=== PATIENT | male | born 1990 | race African-American/Black ===

== ENCOUNTER 2021-04-07 21:09 | Emergency (ER) | payer SELFPAY ==
[2021-04-07] MEDS ORDERED: Acetaminophen 500 MG TAB ONE (21:51)
[2021-04-07 21:55] LABS: Bacteria/HPF None Seen HPF (None Seen); Bilirubin Negative (Negative); Blood, Urine 3+ (Negative); Clarity Clear (Clear); Glucose, Urine (Dipstick) Normal (Negative); Ketone, Urine Negative (Negative); Leukocyte Negative Leu/uL (Negative); Nitrite Negative (Negative); Protein, Urine (Dipstick) Negative (Neg-Trace); Specific Gravity, Urine 1.024 (1.002-1.036); Squamous Epithelial None Seen HPF (0-3); Urobilinogen Normal mg/dL (Less than 2); WBC/HPF 0-3 HPF (0-3)
[2021-04-07 21:59] LABS: Hemoglobin 14.7 g/dL (14.0-18.0); Mean Corpuscular HGB CONC 31.2 g/dL (32.0-36.0); Mean Corpuscular Hemoglobin 26.7 pg (27.0-31.0); Mean Corpuscular Volume 85.6 fL (78.0-98.0); Mean Platelet Volume 7.2 fL (7.4-10.4); Platelet Count 366 thou/uL (130-400); RBC Distribution Width 12.2 % (11.5-14.5); Red Blood Cell (RBC) Count 5.51 mill/uL (4.70-6.10)
[2021-04-07 22:29] LABS: ALT (SGPT) 35 U/L (8-55); AST (SGOT) 18 U/L (5-34); Albumin 4.5 g/dL (3.5-5.0); Alkaline Phosphatase 74 U/L (40-110); Anion Gap 13 mmol/L (10-20); Bilirubin, Total 0.3 mg/dL (0.2-1.2); Calc. Creatinine Clearance 0 mL/min (70-130); Calcium 9.7 mg/dL (7.8-10.44); Carbon Dioxide 26 mmol/L (22-29); Chloride 101 mmol/L (98-107); Globulin 3.6 g/dL (2.4-3.5); Glucose 95 mg/dL (70-105); Protein, Total 8.1 g/dL (6.0-8.3); Sodium 136 mmol/L (136-145)
[2021-04-07 22:32] LABS: Band 3 % (5-11); Eosinophils 1 % (0-10); Lymphocytes 6 % (21-51); MDiff Complete? YES; Monocytes 13 % (0-10); Neutrophil 77 % (42-75)
[2021-04-07] MEDS ORDERED: methylPREDNISolone Sod Succ/PF 125 MG/2 ML VIAL ONE (22:34)
[2021-04-07 22:37] LABS: SARS-CoV-2 NAA Rapid Test Not Detected (NotDetected)
[2021-04-08 00:07] LABS: BUN (Urea Nitrogen) 8 mg/dL (8.9-20.6)
== END 2021-04-07 23:23 | disposition home or self-care (01) ==
LOC: ERS 21:09
DX: J45.901 Unspecified asthma with (acute) exacerbation (principal); J10.1 Influenza due to other identified influenza virus with other respiratory manifestations; Z20.822 Contact with and (suspected) exposure to COVID-19
CPT/HCPCS: 0240U; 71045; 80053; 81003; 81015; 84484; 85025; 85379; 93005; 94640; 96374; J2930; J7620

== ENCOUNTER 2021-10-23 15:41 | Inpatient (IN) | payer SELFPAY ==
[~2021-10-23 15:41] MED LIST: ISOVUE-370 76%-LOCM 1 ML ONE
[2021-10-23] MEDS ORDERED: Magnesium 2 GM/50 ML BAG (IN WATER) ONE (16:00)
[2021-10-23] MEDS ORDERED: Dexamethasone 10 MG/ML VIAL ONE (16:02)
[2021-10-23] MEDS ORDERED: Albuterol Sulfate 2.5 mg/3 ml Neb ONE (16:12)
[2021-10-23] MEDS ORDERED: Albuterol Sulfate 2.5 mg/0.5 ml Neb ONE (16:12)
[2021-10-23 16:15] LABS: Mean Corpuscular HGB CONC 31.6 g/dL (32.0-36.0); Mean Corpuscular Hemoglobin 27.3 pg (27.0-31.0); Mean Corpuscular Volume 86.3 fL (78.0-98.0); Mean Platelet Volume 7.6 fL (7.4-10.4); Platelet Count 303 thou/uL (130-400); RBC Distribution Width 12.5 % (11.5-14.5); Red Blood Cell (RBC) Count 5.49 mill/uL (4.70-6.10); White Blood Cell (WBC) Count 20.3 thou/uL (4.8-10.8)
[2021-10-23 16:23] LABS: Actual Bicarbonate (HCO3a) 25.5 mEq/L (22-28); Analyzer IN Cardio ER; Base Excess (BEa) -0.1 mEq/L (-2.0 to +3.0); CO2 Tension 45.1 mmHg (35.0-45.0); Calcium, Ionized (arterial) 1.14 mmol/L (1.12-1.30); Carboxyhemoglobin (COHb) 1.3 gm% (0.0-3.0); Hemoglobin (Hb) 14.7 g/dL (14.0-18.0); Potassium - ABG Lab 3.69 mmol/L (3.70-5.30); pH, Arterial 7.37 (7.35-7.45)
[2021-10-23 16:30] LABS: Band 3 % (5-11); Lymphocytes 12 % (21-51); MDiff Complete? YES; Monocytes 5 % (0-10); Neutrophil 72 % (42-75); Platelet Morphology Comment Appears Adequate; Polychromasia SLIGHT = 2-3 cells (100X) (0-2/hpf); Reactive Lymphocytes 7 % (0-10); Stomatocytes SLIGHT = 2-5 cells (100X) (0-1/hpf)
[2021-10-23 16:33] LABS: ALV-art Gradient 620.425 mmHg (0-20); O2 Tension (PaO2), arterial 36.2 mmHg (80.0-100.0); Puncture Site RRA
[2021-10-23 16:35] LABS: ALT (SGPT) 26 U/L (8-55); AST (SGOT) 25 U/L (5-34); Alkaline Phosphatase 59 U/L (40-110); Anion Gap 15 mmol/L (10-20); BUN (Urea Nitrogen) 8 mg/dL (8.9-20.6); CK (CPK) 1412 U/L (30-200); Calc. Creatinine Clearance 0 mL/min (70-130); Calcium 9.1 mg/dL (7.8-10.44); Carbon Dioxide 26 mmol/L (22-29); Chloride 101 mmol/L (98-107); Estimated GFR 107; Glucose 103 mg/dL (70-105); Lipase 19 U/L (8-78); Potassium 3.6 mmol/L (3.5-5.1); Sodium 138 mmol/L (136-145)
[2021-10-23 17:46] LABS: SARS-CoV-2 NAA Rapid Test Not Detected (NotDetected)
[2021-10-23] MEDS ORDERED: Acetaminophen 500 MG TAB ONE (18:04)
[2021-10-23] MEDS ORDERED: Zolpidem Tartrate 5 MG TAB PO PRN (19:18)
[2021-10-23] MEDS ORDERED: Acetaminophen 325 MG TAB PO PRN (19:18)
[2021-10-23] MEDS ORDERED: Ondansetron PF 4 MG/2 ML Vial IVP PRN (19:18)
[2021-10-23] MEDS ORDERED: HYDROcodone/Acetaminophen 5/325 mg Tablet PO PRN (19:18)
[2021-10-23] MEDS: Sodium Chloride 0.9% 1,000 ML IV SCH (21:23)
[2021-10-23] MEDS: cefTRIAXone\\ROCEPHIN 1 GM in Sodium Chloride 0.9% 100 ML IVPB SCH (21:23)
[2021-10-23] MEDS: Famotidine 20 MG TAB PO SCH (21:23)
[2021-10-23 23:28] VITALS: BMI 33.3
[2021-10-24] MEDS: methylPREDNISolone Sod Succ 40 MG VIAL IVP SCH ×5 (00:22→23:54)
[2021-10-24 03:09] LABS: Bilirubin Negative (Negative); Blood, Urine 2+ (Negative); Clarity Clear (Clear); Glucose, Urine (Dipstick) Normal (Negative); Ketone, Urine Negative (Negative); Leukocyte Negative Leu/uL (Negative); Nitrite Negative (Negative); Protein, Urine (Dipstick) Negative (Neg-Trace); Specific Gravity, Urine 1.009 (1.002-1.036); Urobilinogen Normal mg/dL (Less than 2); pH, Urine 6.5 (5.0-9.0)
[2021-10-24 03:11] LABS: Urine Culture Reflex No No
[2021-10-24 03:27] LABS: RBC/HPF 0-3 HPF (0-3); Squamous Epithelial None Seen HPF (0-3); WBC/HPF None Seen HPF (0-3)
[2021-10-24] MEDS: Sodium Chloride 0.9% 1,000 ML IV SCH ×2 (05:34→14:52)
[2021-10-24 06:54] LABS: ALT (SGPT) 22 U/L (8-55); AST (SGOT) 16 U/L (5-34); Albumin 3.7 g/dL (3.5-5.0); Alkaline Phosphatase 53 U/L (40-110); Anion Gap 12 mmol/L (10-20); BUN (Urea Nitrogen) 9 mg/dL (8.9-20.6); Bilirubin, Total 0.6 mg/dL (0.2-1.2); Calc. Creatinine Clearance 177 mL/min (70-130); Calcium 8.8 mg/dL (7.8-10.44); Carbon Dioxide 24 mmol/L (22-29); Chloride 106 mmol/L (98-107); Estimated GFR 119; Globulin 3.2 g/dL (2.4-3.5); Glucose 156 mg/dL (70-105); Potassium 4.3 mmol/L (3.5-5.1); Protein, Total 6.9 g/dL (6.0-8.3); Sodium 138 mmol/L (136-145)
[2021-10-24 07:47] LABS: #Lymphocytes 1.6 thou/uL (1.20-3.40); #Monocytes 0.8 thou/uL (0.11-0.59); #Neutrophils 17.2 thou/uL (1.40-6.50); %Eosinophils 0.1 % (0.0-10.0); %Lymphocytes 8.2 % (21.0-51.0); %Monocytes 4.2 % (0.0-10.0); %Neutrophils 87.5 % (42.0-75.0); Band 8 % (5-11); Hemoglobin 14.3 g/dL (14.0-18.0); Hypochromia SLIGHT = 6-15 cells (100X) (0-5/hpf); Lymphocytes 4 % (21-51); MDiff Complete? YES; Mean Corpuscular Hemoglobin 26.6 pg (27.0-31.0); Mean Corpuscular Volume 88.8 fL (78.0-98.0); Mean Platelet Volume 7.9 fL (7.4-10.4); Monocytes 4 % (0-10); Neutrophil 84 % (42-75); Platelet Count 324 thou/uL (130-400); Platelet Morphology Comment Appears Adequate; Polychromasia SLIGHT = 2-3 cells (100X) (0-2/hpf); RBC Distribution Width 13.2 % (11.5-14.5); Red Blood Cell (RBC) Count 5.36 mill/uL (4.70-6.10); White Blood Cell (WBC) Count 19.7 thou/uL (4.8-10.8)
[2021-10-24] MEDS: Famotidine 20 MG TAB PO SCH ×2 (08:07→20:03)
[2021-10-24] MEDS: Enoxaparin Sodium 40 MG/0.4 ML SYRINGE SC SCH (08:08)
[2021-10-24 17:31] LABS: Legionella Urinary Ag Negative (Negative); Strep pneumo Urine Ag NEGATIVE (NEGATIVE)
[2021-10-24] MEDS: cefTRIAXone\\ROCEPHIN 1 GM in Sodium Chloride 0.9% 100 ML IVPB SCH (20:03)
[2021-10-25] MEDS: methylPREDNISolone Sod Succ 40 MG VIAL IVP SCH ×2 (05:39→16:54)
[2021-10-25] MEDS: Enoxaparin Sodium 40 MG/0.4 ML SYRINGE SC SCH (07:04)
[2021-10-25 07:50] LABS: Anion Gap 11 mmol/L (10-20); BUN (Urea Nitrogen) 11 mg/dL (8.9-20.6); CRP (Inflammatory) 4.64 mg/dL (= or < 0.5); Calc. Creatinine Clearance 186 mL/min (70-130); Carbon Dioxide 26 mmol/L (22-29); Chloride 108 mmol/L (98-107); Estimated GFR 121; Glucose 169 mg/dL (70-105); Potassium 4.5 mmol/L (3.5-5.1); Sodium 140 mmol/L (136-145)
[2021-10-25] MEDS: Azithromycin 250 MG TAB PO SCH (08:10)
[2021-10-25] MEDS: Famotidine 20 MG TAB PO SCH ×2 (08:10→20:17)
[2021-10-25 08:32] LABS: Hemoglobin 13.8 g/dL (14.0-18.0); Mean Corpuscular HGB CONC 31.6 g/dL (32.0-36.0); Mean Corpuscular Hemoglobin 27.8 pg (27.0-31.0); Mean Corpuscular Volume 87.9 fL (78.0-98.0); Mean Platelet Volume 7.9 fL (7.4-10.4); Platelet Count 318 thou/uL (130-400); RBC Distribution Width 12.9 % (11.5-14.5); Red Blood Cell (RBC) Count 4.96 mill/uL (4.70-6.10)
[2021-10-25 10:04] LABS: Band 5 % (5-11); Lymphocytes 5 % (21-51); MDiff Complete? YES; Monocytes 2 % (0-10); Neutrophil 86 % (42-75); Platelet Morphology Comment Appears Adequate; Polychromasia SLIGHT = 2-3 cells (100X) (0-2/hpf); Reactive Lymphocytes 2 % (0-10)
[2021-10-25] MEDS: cefTRIAXone\\ROCEPHIN 1 GM in Sodium Chloride 0.9% 100 ML IVPB SCH (20:17)
[2021-10-26] MEDS: methylPREDNISolone Sod Succ 40 MG VIAL IVP SCH (05:08)
[2021-10-26 06:28] LABS: Anion Gap 12 mmol/L (10-20); BUN (Urea Nitrogen) 10 mg/dL (8.9-20.6); CRP (Inflammatory) 1.69 mg/dL (= or < 0.5); Calc. Creatinine Clearance 193 mL/min (70-130); Calcium 8.9 mg/dL (7.8-10.44); Carbon Dioxide 25 mmol/L (22-29); Chloride 106 mmol/L (98-107); Estimated GFR 122; Glucose 188 mg/dL (70-105); Sodium 139 mmol/L (136-145)
[2021-10-26 06:35] LABS: Hemoglobin 13.6 g/dL (14.0-18.0); Mean Corpuscular HGB CONC 31.2 g/dL (32.0-36.0); Mean Corpuscular Hemoglobin 27.6 pg (27.0-31.0); Mean Corpuscular Volume 88.4 fL (78.0-98.0); Mean Platelet Volume 7.9 fL (7.4-10.4); Platelet Count 374 thou/uL (130-400); RBC Distribution Width 13.1 % (11.5-14.5); Red Blood Cell (RBC) Count 4.95 mill/uL (4.70-6.10)
[2021-10-26] MEDS: Azithromycin 250 MG TAB PO SCH (07:54)
[2021-10-26] MEDS: Famotidine 20 MG TAB PO SCH (07:54)
[2021-10-26] MEDS: Enoxaparin Sodium 40 MG/0.4 ML SYRINGE SC SCH (07:54)
[2021-10-26 08:13] LABS: Band 8 % (5-11); Lymphocytes 15 % (21-51); MDiff Complete? YES; Metamyelocyte 1 % (0-0); Monocytes 4 % (0-10); Neutrophil 71 % (42-75); Platelet Morphology Comment Appears Adequate; RBC Morphology Normal; Reactive Lymphocytes 1 % (0-10)
[2021-10-26 08:55] VITALS: BP 129/77; TEMP 97.1
== END 2021-10-26 11:08 | disposition home or self-care (01) | DRG 871 ==
LOC: ERS 15:41 → T4-B 18:08 → UNDOADMOB 18:08 → T4-B 19:17 → OBSVTOIN 10-24 16:02
PROVIDERS: ADMIT Hospitalist; ATTEND Hospitalist
DX: A41.9 Sepsis, unspecified organism (principal); J18.9 Pneumonia, unspecified organism; J96.01 Acute respiratory failure with hypoxia; J45.901 Unspecified asthma with (acute) exacerbation; Z20.822 Contact with and (suspected) exposure to COVID-19
CPT/HCPCS: 36415; 36600; 71045; 71275; 80048; 80053; 81001; 82550; 82805; 83605; 83690; 84443; 84484; 85025; 86140; 87040; 87449; 87804; 87899; 93005; 94640; 94644; 94660; 96361; 96365; 96375; 96376; G0378; J0696; J1100; J1650; J1956; J2920; J3475; J3490; J7050; J7611; J7620; Q9966; U0002